=== PATIENT | female | born 1960 | race Two or more races ===

== ENCOUNTER 2025-03-21 17:43 | Emergency (ER) | payer MEDICAID, SELFPAY ==
--- NOTE | 2025-03-21 17:47 | EKG_ITS ---
[facility] Test Date: 2025-03-21 Pat Name: LAVON BAUTISTA Department: Room: - Gender: Female B[employer]er: : 1960 Requested By: ED Temporary Provider Order Number: [id number] Reading MD: ED Temporary Provider Measurements Intervals Nancy Rate: 102 P: 59 OK: 150 QRS: -26 QRSD: 84 T: 75 QT: 331 QTc: 432 Interpretive Statements SINUS TACHYCARDIA POSSIBLE LEFT ATRIAL ENLARGEMENT [-0.1mV P-WAVE IN V1/V2] BORDERLINE LEFT AXIS DEVIATION [QRS AXIS < -20] NONSPECIFIC T-WAVE ABNORMALITY ABNORMAL RHYTHM ECG No previous ECG available for comparison /[id number]
[2025-03-21 17:50] VITALS: BP 110/66; PULSE 115; RESP 16; TEMP 37.2; O2SAT 98; BMI 25.9
--- NOTE | 2025-03-21 18:42 | XR_ITS ---
Examination: PA chest single view TECHNIQUE: Upright PA chest single view Date and time: March 21, 2025, 185 hours INDICATIONS: Chest pain beginning 2 days ago. FINDINGS: Normal heart size. No pneumonia or pulmonary edema. Moderate osteopenia IMPRESSION: No active disease
--- NOTE | 2025-03-21 18:43 | PD.EDRME ---
Rapid Medical Screening Exam [facility] Arrival date/time: 03/21/25 17:43 64F with history of CVA (2x) and HTN presents to ED with 2 days of CP, SOB, N/V, and non-bloody diarrhea. Patient denies URI symptoms and fevers/chills. Chief Complaint: Chest Pain Vital signs: Vital Signs Temperature 99.0 F 03/21/25 17:50 Pulse Rate 115 H 03/21/25 17:50 Respiratory Rate 16 03/21/25 17:50 Blood Pressure 110/66 03/21/25 17:50 Pulse Oximetry (%) 98 03/21/25 17:50 Oxygen Delivery Method Room Air 03/21/25 17:50
[2025-03-21 19:04] LABS: Lactate (Lactic Acid) 1.5 mMol/L (0.4-2.0)
[2025-03-21 19:07] LABS: Basophils # (Auto) 0.0 Thou/mm3 (0.0-0.2); Basophils % (Auto) 0 % (0-2.5); Eosinophils # (Auto) 0.0 Thou/mm3 (0.0-0.5); Eosinophils % (Auto) 1 % (0-10); Hematocrit 43.8 % (36.0-46.0); Hemoglobin 15.6 g/dL (12.0-16.0); Immature Granulocytes Auto 0.03 Thou/mm3 (0.00-0.00); Lymphocytes # (Auto) 0.7 Thou/mm3 (1.0-4.8); Lymphocytes % (Auto) 12 % (10-50); Mean Corpuscular HGB Conc 35.6 g/dl (31.0-37.0); Mean Corpuscular Hemoglobin 28.7 pg (25.0-35.0); Mean Corpuscular Volume 81 fL (80-100); Monocytes # (Auto) 0.3 Thou/mm3 (0.0-0.8); Monocytes % (Auto) 4 % (0-12); Neutrophils # (Auto) 4.8 Thou/mm3 (1.8-7.7); Neutrophils % (Auto) 83 % (37-80); Nucleated Red Blood Cell # 0.00 Thou/mm3 (0.00-0.00); Nucleated Red Blood Cell % 0 /100 WBC (0); Platelet Count 111 Thou/mm3 (140-440); RDW Standard Deviation 37.3 fL (36.4-46.3); Red Blood Count 5.43 Miln/mm3 (4.00-5.20); White Blood Count 5.8 Thou/mm3 (3.6-11.0)
[2025-03-21 19:30] LABS: B-Type Natriuretic Peptide 22 pg/mL (0-100)
[2025-03-21 19:39] LABS: Alanine Aminotransferase 50 U/L (10-49); Albumin, Serum 4.5 gm/dL (3.4-4.8); Albumin/Globulin Ratio 1.6 (1.2-2.2); Alkaline Phosphatase 112 U/L (46-116); Anion Gap 8 (7-16); Aspartate Amino Transferase 47 U/L (0-34); BUN/Creatinine Ratio 15 Ratio (12-20); Bilirubin,Total 0.7 mg/dL (0.3-1.2); Blood Urea Nitrogen 12 mg/dL (9-23); Calcium 9.7 mg/dL (8.3-10.6); Calcium (Corrected) 9.7 mg/dL (8.5-10.1); Carbon Dioxide 26.6 mMol/L (20.0-31.0); Chloride 102 mMol/L (98-107); Creatinine (Component) 0.8 mg/dL (0.6-1.3); Estimated Creatinine Clearance 75.2 mL/min (>60); Globulin 2.9 gm/dL (2.3-3.5); Glucose 119 mg/dL (74-106); Magnesium 1.9 mg/dL (1.6-2.6); Osmolality,Calculated 274 (275-295); Potassium 3.7 mMol/L (3.4-5.1); Procalcitonin 0.10 ng/ml (0.0-0.49); Sodium 137 mMol/L (136-145); Total Protein 7.4 gm/dL (5.7-8.2); Troponin I < 0.002 ng/mL (0.0-0.045); eGFR > 60 See Note
[2025-03-21 21:38] VITALS: BP 121/72; PULSE 98; RESP 18; TEMP 37.9; O2SAT 97
--- NOTE | 2025-03-21 22:39 | PC.NURSE ---
PATIENT AND FAMILY WALKED OUT THE ED AT THIS TIME. FAMILY MEMBER STATED WE'RE JUST GOING TO HEAD OUT, AND DID NOT WANT TO WAIT FOR PROVIDER TO GO OVER RESULTS.
== END 2025-03-21 22:43 | disposition left against medical advice (07) ==
PROVIDERS: Physician Assistant; Emergency Provider Emergency Medicine; PCP Family Medicine
DX: R07.9 Chest pain, unspecified (principal); R06.02 Shortness of breath; R11.2 Nausea with vomiting, unspecified; R19.7 Diarrhea, unspecified; I10 Essential (primary) hypertension; Z53.29 Procedure and treatment not carried out because of patient's decision for other reasons
CPT/HCPCS: 36415; 71045; 80053; 83605; 83735; 83880; 84145; 84484; 85025; 93005; 99281